=== PATIENT | male | born 1995 | race Caucasian/White ===

== ENCOUNTER 2020-10-19 20:53 | Outpatient (CLI) | payer OTHER | END 2020-10-19 20:54 | disposition home or self-care (01) | LOC: COV 20:53 | PROVIDERS: ATTEND Family Medicine | DX: R05 Cough (principal); R68.83 Chills (without fever); Z20.822 Contact with and (suspected) exposure to COVID-19 ==

== ENCOUNTER 2024-06-15 07:43 | Inpatient (IN) ==
[2024-06-15 08:09] LABS: BASOPHILS % (AUTO) 0.5 %; HCT - HEMATOCRIT 62.6 % (42.0-52.0); HGB - HEMOGLOBIN 20.7 g/dL (14.0-18.0); LYMPHOCYTES % (AUTO) 2.5 %; MEAN CORPUSCULAR HEMOGLOBIN 30.1 pg (27.0-31.0); MEAN CORPUSCULAR HGB CONC 33.1 g/dL (32.0-36.0); MEAN CORPUSCULAR VOLUME 91.1 fL (80.0-94.0); MONOCYTES % (AUTO) 4.3 %; NEUTROPHILS % (AUTO) 91.8 %; PLT - PLATELET COUNT 438 10^3/uL (130-450); RED BLOOD COUNT 6.87 10^6/uL (4.70-6.10); RED CELL DISTRIBUTION WIDTH 13.2 % (12.0-15.0); WHITE BLOOD COUNT 33.3 x10^3/uL (4.8-10.8)
[2024-06-15 08:14] LABS: ABNORMAL LYMPHS % (MANUAL) 0 %
[2024-06-15 08:15] LABS: PT - PROTHROMBIN TIME 11.1 secs (9.9-12.6)
--- NOTE | 2024-06-15 08:19 | ED Physician Documentation ---
History of Present Illness Stated complaint Stated Complaint: ABD PX, FEVER Chief complaint Chief Complaint: Abd Pain History obtained from History obtained from: Patient Additonal information Additional information: He has a history of inguinal hernia repair and alcohol abuse although has cut back after an episode of pancreatitis about a month ago. That said he still drinking occasionally. Last drink was 3 days ago. He developed severe upper abdominal pain at 8 PM last night associated with nausea and vomiting that is nonbloody. Since then pain started radiating down. Last BM about a day and a half ago. He notes decreased urination. Meds/Allgy Home Medications Ambulatory Orders Medication Instructions Recorded Confirmed escitalopram oxalate 10 mg tablet 10 mg PO DAILY 06/15/24 06/15/24 Allergies Allergies Allergy/AdvReac Type Severity Reaction Status Date / Time prochlorperazine (From AdvReac Intermediate Anxiety Verified 06/15/24 08:10 Compazine) [facility] Surgical History Surgical History (Updated 06/15/24 @ 08:27 by Myron Glaser RN) Hx of hernia repair Social History Social History (Updated 06/15/24 @ 08:27 by Myron Glaser RN) Smoking Status: Current some day smoker Do you vape?: Yes Living arrangement: At home Relationship: Do you feel safe in your home environment?: Yes Suffered physical, verbal, emotional, or financial abuse?: No History of Abuse: No ETOH Use: Liquor Frequency: Occasional Substance Use: cannabis (any form) POLST Patient has POLST: No Exam Constitutional He is pale tachycardic and hypertensive and appears to be in pain. Respiratory breath sounds equal bilaterally, normal respiratory effort and clear to auscultation bilaterally Cardiovascular Tachycardic but regular without murmur Gastrointestinal Severe diffuse abdominal tenderness with rebound tenderness. Neurology GCS 15 Psychiatry oriented x3 Results Vitals Vitals: Vital Signs - 24 hr 06/15/24 08:11 06/15/24 08:23 06/15/24 08:35 Temperature 36.5 C Temperature Source Oral Pulse Rate 123 H 109 H Respiratory Rate 24 25 H Blood Pressure 186/130 H 186/130 H O2 Saturation 64 L 98 O2 Source Room air Room air Pain Intensity 8 9 8 06/15/24 08:41 06/15/24 08:43 06/15/24 09:26 Temperature Temperature Source Pulse Rate 97 101 H Respiratory Rate 18 20 Blood Pressure 189/132 H 183/121 H O2 Saturation 98 99 O2 Source Room air Room air Pain Intensity 6 6 8 06/15/24 09:40 06/15/24 09:51 06/15/24 10:21 Temperature 36.8 C Temperature Source Oral Pulse Rate 136 H Respiratory Rate 19 Blood Pressure 174/130 H O2 Saturation 97 O2 Source Room air Pain Intensity 8 4 4 Oxygen O2 Source Room air Labs Labs: Laboratory Tests 06/15/24 08:04 WBC 33.3 H RBC 6.87 H Hgb 20.7 H Hct 62.6 H MCV 91.1 MCH 30.1 MCHC 33.1 RDW 13.2 Plt Count 438 MPV 9.0 Neut # (Auto) Not Reportable Lymph # (Auto) Not Reportable [place] # (Auto) Not Reportable Eos # (Auto) Not Reportable Baso # (Auto) Not Reportable Absolute Nucleated RBC Not Reportable Total Counted 100 Band Neuts % (Manual) 7 Abnorm Lymph % (Manual) 0 Nucleated RBC % Not Reportable Neutrophils # (Manual) 32.0 H Lymphocytes # (Manual) 0.7 L Monocytes # (Manual) 0.7 Eosinophils # (Manual) 0.0 Basophils # (Manual) 0.0 Differential Comment MANUAL DIFFERENTIAL WBC Morphology NORMAL APPEARANCE Platelet Estimate NORMAL (130-450,000) Platelet Morphology NORMAL APPEARANCE RBC Morph Micro Appear NORMAL APPEARANCE PT 11.1 INR 1.0 Sodium 132 L Potassium 4.8 H Chloride 93 L Carbon Dioxide 20 L Anion Gap 19.0 H BUN 22 H Creatinine 1.4 H Estimated GFR (MDRD) 59 L Glucose 157 H Calcium 9.6 Total Bilirubin 2.1 H AST 64 H ALT 70 H Alkaline Phosphatase 131 H Total Protein 7.4 Albumin 4.6 Globulin 2.8 Albumin/Globulin Ratio 1.6 Lipase 1910 H Ethyl Alcohol < 10.0 Rads (name of study) Single view chest x-ray was normal without free air: Relevant Findings:: Final report received and EMP independent interpretation of test CT A/P: Relevant Findings:: Final report received and EMP independent interpretation of test (Severe pancreatitis with out necrosis. He does have edema though and ascites. Radiologist recommended ultrasonography but he had negative ultrasound a month ago.) PD Medical Decision Making ED course ED course: 29-year-old gentleman with history of mild pancreatitis presents with severe abdominal pain he is significantly tender enough that my initial first move was to get an upright chest x-ray to rule out free air which was negative for same. CBC notable for severe leukocytosis and probably hemoconcentration. CMP notable for prerenal azotemia, modest liver disease, and lipase elevated at 1900. No alcohol on blood work currently. 29-year-old gentleman with severe alcoholic pancreatitis. He is tachycardic in the 130s, hypertensive with a white count of 33,000 and signs of hemoconcentration. CT showing edema and ascites, but no necrotizing component at this point. Spoke with the hospitalist for admission at 10:15 AM. The patient and family are counseled as to the diagnosis and need for admission. This document was made in part using voice recognition software, while efforts are made to proofread this document, sound alike an grammatical errors may occur. Critical Care Time(min): 42 Time Includes: Direct patient care, Review records, Reassess patient and Document care Data interpretation: Labs Procedures included in critical care time: Peripheral IV Discharge Plan Discharge Patient Disposition: 66 [facility] DC/Xfer Condition: Serious Clinical Impression: Pancreatitis Interventions: ED Admission Assessment Last Done: 06/15/24 11:10
[2024-06-15] MEDS ORDERED: iohexoL-300 100 ML VIAL ONE (08:20)
[2024-06-15] MEDS: SODIUM CHLORIDE 0.9% 1,000 ML IV STA ×2 (08:21→10:26)
[2024-06-15 08:23] LABS: ETOH - ETHANOL < 10.0 mg/dL
[2024-06-15] MEDS: ONDANSETRON 4 MG/2 ML VIAL IVP STA (08:23)
[2024-06-15] MEDS: HYDROmorphone 1 MG/ML CARPUJECT IVP STA ×2 (08:23→09:40)
[2024-06-15 08:28] LABS: BAND NEUTROPHILS % (MANUAL) 7 %; LYMPHOCYTES # (MANUAL) 0.7 10^3/uL (1.5-3.5); LYMPHOCYTES % (MANUAL) 2 %; MONOCYTES # (MANUAL) 0.7 10^3/uL (0.0-1.0); PLATELET ESTIMATE, MANUAL NORMAL (130-450,000) (NORMAL); PLATELET MORPHOLOGY NORMAL APPEARANCE (NORMAL); RBC MORPHOLOGY (MULTIPLE) NORMAL APPEARANCE (NORMAL); WBC MORPHOLOGY (MULTIPLE) NORMAL APPEARANCE (NORMAL)
[2024-06-15 08:29] LABS: DIFFERENTIAL COMMENT MANUAL DIFFERENTIAL
[2024-06-15 08:33] LABS: LIPASE 1910 U/L (11-82)
[2024-06-15 08:34] LABS: ALBUMIN 4.6 g/dL (3.2-5.5); ALBUMIN/GLOBULIN RATIO 1.6 (1.0-2.2); ALKALINE PHOSPHATASE 131 IU/L (42-121); ALT ALANINE AMINOTRANSFERASE 70 IU/L (10-60); AST ASPARTATE AMINOTRANSFERASE 64 IU/L (10-42); BILIRUBIN,TOTAL 2.1 mg/dL (0.2-1.0); BUN - BLOOD UREA NITROGEN 22 mg/dL (6-20); CALCIUM 9.6 mg/dL (8.5-10.3); CARBON DIOXIDE - CO2 20 mmol/L (21-32); CHLORIDE 93 mmol/L (101-111); CREATININE 1.4 mg/dL (0.6-1.3); GFR - MDRD 59 (>89); GLUCOSE 157 mg/dL (74-104); POTASSIUM 4.8 mmol/L (3.5-4.5); SODIUM 132 mmol/L (135-145); TOTAL PROTEIN 7.4 g/dL (6.4-8.9)
--- NOTE | 2024-06-15 09:36 | XRAY Report ---
PROCEDURE: XR Chest 1V INDICATIONS: upright, eval free air, severe abd pain TECHNIQUE: One view of the chest was acquired. COMPARISON: None. FINDINGS: Surgical changes and devices: None. Lungs and pleura: No pleural effusions or pneumothorax. No consolidation. Mediastinum: Mediastinal contours appear normal. Heart size is normal. Bones and chest wall: No suspicious bony lesions. Overlying soft tissues appear unremarkable. IMPRESSION: No acute cardiopulmonary process. Reviewed by: Kaiser Quinones MD on 06/15/2024 9:35 AM [facility] Approved by: Kaiser Quinones MD on 06/15/2024 9:35 AM [facility] Station ID: [id number]
[2024-06-15] MEDS: iohexoL-300 100 ML VIAL IVP ONE (09:37)
[2024-06-15] MEDS ORDERED: HYDROmorphone 1 MG/ML CARPUJECT ONE (09:38)
--- NOTE | 2024-06-15 09:41 | CT Report ---
PROCEDURE: CT Abdomen/Pelvis W INDICATIONS: iv only, diffuse abd pain CONTRAST: OMNI 300 100ML TECHNIQUE: After the administration of intravenous contrast, a CT scan of the abdomen and pelvis was performed. Images were recorded and evaluated at appropriate window settings. Reformats: coronal and sagittal. F or radiation dose reduction, the following was used: automated exposure control, adjustment of mA and /or kV according to patient size. COMPARISON: 05/12/2024. FINDINGS: Image quality: Diagnostic. Lower chest: Unremarkable. Liver: No solid mass. Gallbladder: Distended gallbladder with mild wall prominence. No radiopaque gallstones noted. Biliary tree: No intrahepatic or extrahepatic dilation, accounting for age. Spleen: Mild pancreatic edema. No pancreatic necrosis. No free air or abscess. Extensive peripancreat ic inflammatory ascites with ascites extending down into the pelvis. Pancreas: No pancreatic ductal dilation. Adrenals: No adrenal nodule. Kidneys and ureters: No hydronephrosis. No renal cystic lesion which requires follow up. No solid mas s. Stomach, bowel and peritoneum: No gastric or small bowel dilation. No abnormal wall thickening. Moder ate abdominal ascites and mild pelvic ascites, likely representing sequelae of acute pancreatitis. Lymph nodes: No central or retroperitoneal adenopathy. Vessels: No infrarenal aortic aneurysm. Patent portal vein. Incidental note is made of independent or igin of the common hepatic artery as an independent vessel off of the abdominal aorta. PELVIS Reproductive organs: Unremarkable. Bladder: No abnormal wall thickening, accounting for underdistention. Pelvic lymph nodes: No pelvic adenopathy by size criteria. Bones: No aggressive osseous abnormality. Other: No significant ventral or inguinal hernia. IMPRESSION: 1. Acute pancreatitis. Suggestion of pancreatic edema. Extensive peripancreatic fluid, likely inflamm atory in nature, with moderate abdominal ascites and mild pelvic ascites. No evidence of pancreatic n ecrosis. 2. Distended gallbladder with mild wall prominence. No radiopaque gallstones noted. Comment: Right upper quadrant ultrasound may be helpful. Reviewed by: Kaiser Quinones MD on 06/15/2024 9:40 AM [facility] Approved by: Kaiser Quinones MD on 06/15/2024 9:40 AM PST Station ID: [id number]
[2024-06-15] MEDS: D5.45NS W/20 MEQ KCL 1,000 ML IV STA (10:31)
--- NOTE | 2024-06-15 11:02 | PHARMACY PROGRESS NOTE ---
Best Possible Medication History Admit Date and Time: 06/15/24 [id number] Home Medications Medication Instructions Recorded Confirmed Type escitalopram oxalate 10 mg tablet 10 mg PO DAILY 06/15/24 06/15/24 History Processed by: Nursing Medications reviewed in ED?: Yes Medication History completed: Yes Patient Interview: Completed Secondary Source(s): Pharmacy records and Insurance records [facility] Statement: As the person ultimately responsible for medication therapy, providers are able to order a medication from an existing home medication list in [facility] via the "Reconcile Routine" prior to Confirmation of that medication by cryptologic support specialist. Such practice is discouraged except when the physician, in their clinical judgment, deems that a medical need exists for a medication without regard to previous use.
[2024-06-15] MEDS: HYDROmorphone 0.5 MG/0.5 ML SYRINGE IVP PRN (11:30)
[2024-06-15] MEDS: HYDROmorphone PCA 20MG/100ML IV PRN (12:30)
[2024-06-15 13:08] LABS: BASOPHILS % (AUTO) 0.1 %; HCT - HEMATOCRIT 62.6 % (42.0-52.0); HGB - HEMOGLOBIN 20.8 g/dL (14.0-18.0); LYMPHOCYTES % (AUTO) 2.7 %; MEAN CORPUSCULAR HEMOGLOBIN 30.1 pg (27.0-31.0); MEAN CORPUSCULAR HGB CONC 33.2 g/dL (32.0-36.0); MEAN CORPUSCULAR VOLUME 90.7 fL (80.0-94.0); MEAN PLATELET VOLUME 9.1 fL (7.4-11.4); MONOCYTES % (AUTO) 2.9 %; NEUTROPHILS % (AUTO) 93.7 %; PLT - PLATELET COUNT 383 10^3/uL (130-450); RED CELL DISTRIBUTION WIDTH 13.7 % (12.0-15.0); WHITE BLOOD COUNT 29.1 x10^3/uL (4.8-10.8)
[2024-06-15 13:12] LABS: ABNORMAL LYMPHS % (MANUAL) 0 %
--- NOTE | 2024-06-15 13:17 | HISTORY & PHYSICAL EXAMINATION ---
Chief Complaint Chief Complaint Chief Complaint: Abdominal pain History of Present Illness History of Present Illness HPI Comment/Other: This is a 29-year-old male with a past medical history of pancreatitis, alcohol use disorder and anxiety who presents with ER for abdominal pain x 3 days. Patient states that abdominal pain is over the left upper quadrant, very painful upon palpitation. This has started several days ago. Patient states last drink was on Saturday. Patient states that he never went through DTs or seizures during Several episodes of alcohol withdrawal. Patient had similar episodes back in April.At this time CT abdomen indicated inflammation of pancreatic head. Ultrasound at that time showed hepatic steatosis and nonobstructive calculi of the right kidney. Today: Chest ray in the ED indicated no cardiopulmonary issues CT of the abdomen indicates acute pancreatitis with pancreatic edema. Extensive Pancreatic fluid likely inflammation, moderate abdominal ascites. No pancreatic evidence of regarding necrosis. Distended gallbladder with mild wall prominence no gallstones noted. Laboratory values are significant for elevated leukocytosis of 23,000, Elevated creatinineOf 1.4, elevated bilirubin of 2.1 elevated AST ALT, Elevated alkaline phosphatase and a lipase of 1910. Patient is full code Meds/Allgy Home Medications Ambulatory Orders Medication Instructions Recorded Confirmed escitalopram oxalate 10 mg tablet 10 mg PO DAILY 06/15/24 06/15/24 Allergies Allergies Allergy/AdvReac Type Severity Reaction Status Date / Time prochlorperazine (From AdvReac Intermediate Anxiety Verified 06/15/24 08:10 Compazine) [facility] Surgical History Surgical History (Updated 06/15/24 @ 08:27 by Myron Glaser RN) Hx of hernia repair Social History Social History (Updated 06/15/24 @ 08:27 by Myron Glaser RN) Smoking Status: Current some day smoker Do you vape?: Yes Living arrangement: At home Relationship: Do you feel safe in your home environment?: Yes Suffered physical, verbal, emotional, or financial abuse?: No History of Abuse: No ETOH Use: Liquor Frequency: Occasional Substance Use: cannabis (any form) POLST Patient has POLST: No Review of Systems Status of ROS: 10 or more systems reviewed and unremarkable except as noted in history and below Exam Constitutional normal general appearance In pain distress HENMT normocephalic and head/scalp atraumatic Eyes PERRL and EOMs intact bilaterally Neck/C-Spine visual inspection normal and trachea midline Chest inspection of chest normal and palpation of chest normal Respiratory breath sounds equal bilaterally and normal respiratory effort Cardiovascular Sinus tach Gastrointestinal Left upper quadrant pain upon palpitation Extremities normal to inspection and normal to palpation Neurology piccoloist II-XII intact and no movement abnormality noted Skin skin color normal and no rash Conclusion/Plan Problem List (1) Acute alcoholic pancreatitis: Plan: Patient has recurrent pancreatitis due to alcohol. On CT abdomen patient has acute hepatitis without necrosis. Pain control with PARTS CONSULTANT Dilaudid Aggressive IV fluids resuscitation N.p.o. (2) Tachycardia: Plan: Likely pain related Lopressor as needed for heart rate greater than 120, hold for SBP less than 100 (3) Elevated liver enzymes: Plan: Likely due to chronic alcohol use. Previous ultrasound(05/10) indicated hepatic steatosis and no indication of gallstones or biliary obstruction. Monitor (4) Abdominal pain: Plan: PARTS CONSULTANT pain control Qualifiers: Abdominal location: unspecified location Qualified Code(s): R10.9 - Unspecified abdominal pain (5) Alcohol use disorder: Plan: CIWA protocol Patient denies previous DTs or seizures during withdrawal episodes. (6) Leukocytosis: Plan: Likely reactive in the background of acute pancreatitis. Continue monitor Hold ABX (7) Anxiety: Plan: Continue with home medication of escitalopram Lab Results 06/15/24 08:04 06/15/24 08:04
[2024-06-15 13:39] LABS: ALBUMIN 3.4 g/dL (3.2-5.5); ALBUMIN/GLOBULIN RATIO 1.6 (1.0-2.2); BILIRUBIN,TOTAL 1.4 mg/dL (0.2-1.0); CALCIUM 7.9 mg/dL (8.5-10.3); CREATININE 1.2 mg/dL (0.6-1.3); POTASSIUM 4.4 mmol/L (3.5-4.5); TOTAL PROTEIN 5.5 g/dL (6.4-8.9)
[2024-06-15 13:49] LABS: BAND NEUTROPHILS % (MANUAL) 7 %; DIFFERENTIAL COMMENT MANUAL DIFFERENTIAL; LYMPHOCYTES # (MANUAL) 0.6 10^3/uL (1.5-3.5); LYMPHOCYTES % (MANUAL) 2 %; MONOCYTES # (MANUAL) 0.9 10^3/uL (0.0-1.0); NEUTROPHILS # (MANUAL) 27.6 10^3/uL (1.5-6.6); PLATELET MORPHOLOGY NORMAL APPEARANCE (NORMAL); RBC MORPHOLOGY (MULTIPLE) NORMAL APPEARANCE (NORMAL); WBC MORPHOLOGY (MULTIPLE) NORMAL APPEARANCE (NORMAL)
[2024-06-15] MEDS: LORazepam 2 MG/ML VIAL IVP PRN (14:10)
[2024-06-15] MEDS: SODIUM CHLORIDE FLUSH 0.9% 10 ML SYRINGE IVP PRN (14:10)
[2024-06-15] MEDS: ONDANSETRON ODT 4 MG TABLET TL PRN (14:16)
[2024-06-15] MEDS: METOPROLOL 5 MG/5 ML VIAL IVP PRN (14:34)
[2024-06-15] MEDS: MULTIVITAMIN 10 ML, THIAMINE INJ 100 MG, FOLIC ACID INJ 1 MG in SODIUM CHLORIDE 0.9% 1,... IV SCH (15:52)
[2024-06-15] MEDS: SODIUM CHLORIDE 0.9% 1,000 ML IV SCH (15:58)
[2024-06-15] MEDS: SODIUM CHLORIDE FLUSH 0.9% 10 ML SYRINGE IVP SCH (18:18)
[2024-06-15] MEDS: polyethylene glycoL 3350 17 GM PACKET PO SCH (22:24)
[2024-06-16 05:58] LABS: HCT - HEMATOCRIT 56.3 % (42.0-52.0); HGB - HEMOGLOBIN 19.1 g/dL (14.0-18.0); LYMPHOCYTES % (AUTO) 4.8 %; MEAN CORPUSCULAR HEMOGLOBIN 30.8 pg (27.0-31.0); MEAN CORPUSCULAR HGB CONC 33.9 g/dL (32.0-36.0); MEAN CORPUSCULAR VOLUME 90.8 fL (80.0-94.0); MEAN PLATELET VOLUME 9.8 fL (7.4-11.4); MONOCYTES % (AUTO) 4.3 %; NEUTROPHILS % (AUTO) 90.4 %; PLT - PLATELET COUNT 282 10^3/uL (130-450); RED CELL DISTRIBUTION WIDTH 13.2 % (12.0-15.0); WHITE BLOOD COUNT 28.4 x10^3/uL (4.8-10.8)
[2024-06-16 06:01] LABS: CALCIUM, IONIZED 1.09 mmol/L (1.15-1.33); VBG PH 7.211 (7.31-7.41)
[2024-06-16 06:06] LABS: ABNORMAL LYMPHS % (MANUAL) 0 %
[2024-06-16 06:16] LABS: CALCIUM 7.7 mg/dL (8.5-10.3); MAGNESIUM 1.5 mg/dL (1.7-2.3); PHOSPHORUS 4.4 mg/dL (2.5-5.0); POTASSIUM 4.7 mmol/L (3.5-4.5)
[2024-06-16 08:09] LABS: BAND NEUTROPHILS % (MANUAL) 14 %; LYMPHOCYTES # (MANUAL) 0.6 10^3/uL (1.5-3.5); LYMPHOCYTES % (MANUAL) 2 %; MONOCYTES # (MANUAL) 1.7 10^3/uL (0.0-1.0); NEUTROPHILS # (MANUAL) 26.1 10^3/uL (1.5-6.6); RBC MORPHOLOGY (MULTIPLE) 1+ ANISOCYTOSIS (NORMAL)
[2024-06-16 08:10] LABS: DIFFERENTIAL COMMENT MANUAL DIFFERENTIAL
[2024-06-16] MEDS ORDERED: polyethylene glycoL 3350 17 GM PACKET PO SCH (09:00)
[2024-06-16] MEDS: ESCITALOPRAM 10 MG TABLET PO SCH (09:18)
[2024-06-16] MEDS: ENOXAPARIN 40 MG/0.4 ML SYRINGE SUBQ SCH (09:19)
--- NOTE | 2024-06-16 11:40 | Ultrasound Report ---
PROCEDURE: US Abdomen Limited INDICATIONS: gallbladder TECHNIQUE: Real-time focused scanning was performed of the abdomen, with image documentation. COMPARISONS: CT 06/15/2024 FINDINGS: Liver: Liver is normal in size and homogeneous in echotexture. Gallbladder: No gallstones, sludge, wall thickening or pericholecystic edema. Biliary ducts: Intrahepatic bile ducts are non-dilated. Extrahepatic bile duct caliber measures 4 m m. Normal is 6-7 mm or less in diameter, or 10 mm or less post-cholecystectomy. Pancreas: Not well visualized due to overlying bowel gas. Right kidney: Normal in size and echotexture. Right kidney measures 9.3 cm long. No hydronephrosis o r nephrolithiasis. No solid masses. No complex renal cystic lesions which require follow-up. Miscellaneous: Small volume ascites. IMPRESSION: No gallbladder pathology. No stones or wall thickening. Reviewed by: Jayant Pedersen MD on 06/16/2024 11:39 AM [facility] Approved by: Jayant Pedersen MD on 06/16/2024 11:39 AM PST Station ID: [id number]
--- NOTE | 2024-06-16 12:07 | PROVIDER PROGRESS NOTE ---
Subjective Subjective Subjective: Patient is a 29-year-old male with a history of alcohol use who presents with abdominal pain. CT shows acute pancreatitis with pancreatic edema. Did show distended gallbladder. This morning, patient is feeling a little improved. 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 His appetite is returning. Current Medications Current Medications Current Medications: Current Medications Generic Name Dose Route Start Last Admin Trade Name Freq PRN Reason Stop Dose Admin Enoxaparin Sodium 40 mg 06/16/24 09:00 06/16/24 09:19 Enoxaparin 40 Mg/0.4 Ml Syringe SUBQ Not Given DAILY RIVERA Escitalopram Oxalate 10 mg 06/16/24 09:00 06/16/24 09:18 Escitalopram 10 Mg Tablet PO 10 mg DAILY RIVERA Administration Hydromorphone HCl 20 mg 06/15/24 10:38 06/15/24 12:30 Hydromorphone Hogshead Stripper 20mg/100ml IV 20 mg PRN PRN Administration Abdominal Pain Protocol Hydromorphone HCl 0.5 mg 06/15/24 11:03 06/15/24 11:30 Hydromorphone 0.5 Mg/0.5 Ml Syringe IVP 0.5 mg Q2H PRN Administration Pain 8 to 10 Sodium Chloride 1,000 mls @ 125 mls/hr 06/15/24 11:03 06/16/24 02:51 Normal Saline 0.9% IV 125 mls/hr .Q8H RIVERA Administration Multivitamins 10 ml/ Thiamine 1,011.2 mls @ 100 mls/hr 06/15/24 13:00 06/16/24 09:20 HCl 100 mg/ Folic Acid 1 mg/ IV 100 mls/hr Sodium Chloride DAILY RIVERA Administration Lorazepam 1 mg 06/15/24 12:46 06/16/24 01:50 Lorazepam 2 Mg/Ml Vial IVP 1 mg Q30M PRN Administration CIWA >8 Protocol Metoprolol Tartrate 5 mg 06/15/24 12:54 06/16/24 04:27 Metoprolol 5 Mg/5 Ml Vial IVP 5 mg Q6H PRN Administration Tachycardia Ondansetron HCl 4 mg 06/15/24 11:03 06/15/24 20:31 Ondansetron Odt 4 Mg Tablet TL 4 mg Q6HR PRN Administration Nausea / Vomiting Polyethylene Glycol 17 gm 06/15/24 23:00 06/16/24 09:19 Polyethylene Glycol 3350 17 Gm Packet PO 17 gm DAILY RIVERA Administration Sodium Chloride 10 ml 06/15/24 11:03 06/15/24 14:35 Sodium Chloride Flush 0.9% 10 Ml Syringe IVP 10 ml PRN PRN Administration NEEDED PER PROVIDER ORDERS Sodium Chloride 10 ml 06/15/24 17:00 06/16/24 09:20 Sodium Chloride Flush 0.9% 10 Ml Syringe IVP 10 ml 0100,0900,1700 RIVERA Administration Objective Vital Signs/Intake & Output Reviewed Vital Signs: Yes Vital Signs: Vital Signs x48h Temp Pulse Pulse Resp BP BP Pulse Ox 06/16/24 11:00 18 06/16/24 08:21 97.3 F L 121 H 18 135/88 H 96 06/16/24 06:48 18 06/16/24 05:00 18 06/16/24 04:57 101 H 109/76 06/16/24 04:43 98 109/76 98 06/16/24 04:27 138 H 127/86 06/16/24 04:20 98.1 F 132 H 20 127/86 96 Intake & Output: Intake & Output 06/13/24 06/14/24 06/15/24 06/16/24 23:59 23:59 23:59 23:59 Intake Total 3569 / 3569 1121.2 / 1121.2 Output Total 150 / 150 45 / 45 Balance 3419 / 3419 1076.2 / 1076.2 Weight (kg) 52 kg Objective General Appearance: positive Mild distress and Anxious Eyes Bilateral: positive Normal inspection, PERRL and EOMI ENT: positive ENT inspection nml, Pharynx nml and No signs of dehydration Neck: positive Nml inspection, Thyroid nml and No JVD Respiratory: positive Chest non-tender, No respiratory distress and Breath sounds nml; negative Wheezes, Rales or Rhonchi Cardiovascular: positive No murmur and Tachycardia; negative Diastolic murmur or Friction rub Abdomen: positive Nml bowel sounds and Tenderness; negative Guarding or Rebound Back: positive Nml inspection; negative CVA tenderness (R) or CVA tenderness (L) Skin: positive Color nml, No rash, Warm and Dry Extremities: positive Non-tender, Full ROM and No pedal edema Neurologic/Psychiatric: positive Oriented x3 and Mood/affect nml Lab Results 06/16/24 05:40 06/16/24 05:40 Other Labs: Lab Results x24hrs 06/16/24 06/16/24 06/15/24 Range/Units 05:40 04:53 13:01 WBC 28.4 H 29.1 H (4.8-10.8) x10^3/uL RBC 6.20 H 6.90 H (4.70-6.10) 10^6/uL Hgb 19.1 H 20.8 H (14.0-18.0) g/dL Hct 56.3 H 62.6 H (42.0-52.0) % MCV 90.8 90.7 (80.0-94.0) fL MCH 30.8 30.1 (27.0-31.0) pg MCHC 33.9 33.2 (32.0-36.0) g/dL RDW 13.2 13.7 (12.0-15.0) % Plt Count 282 383 (130-450) 10^3/uL MPV 9.8 9.1 (7.4-11.4) fL Neut # (Auto) Not Reportable Not Reportable Lymph # (Auto) Not Reportable Not Reportable [place] # (Auto) Not Reportable Not Reportable Eos # (Auto) Not Reportable Not Reportable Baso # (Auto) Not Reportable Not Reportable Absolute Nucleated RBC Not Reportable Not Reportable Total Counted 100 100 Band Neuts % (Manual) 14 H 7 (0 - 10) % Abnorm Lymph % (Manual) 0 0 % Nucleated RBC % Not Reportable Not Reportable Neutrophils # (Manual) 26.1 H 27.6 H (1.5-6.6) 10^3/uL Lymphocytes # (Manual) 0.6 L 0.6 L (1.5-3.5) 10^3/uL Monocytes # (Manual) 1.7 H 0.9 (0.0-1.0) 10^3/uL Eosinophils # (Manual) 0.0 0.0 (0-0.7) 10^3/uL Basophils # (Manual) 0.0 0.0 (0-0.1) 10^3/uL Differential Comment MANUAL DIFFERENTIAL MANUAL DIFFERENTIAL WBC Morphology NORMAL APPEARANCE (NORMAL) Platelet Morphology NORMAL APPEARANCE (NORMAL) RBC Morph Micro Appear 1+ ANISOCYTOSIS NORMAL APPEARANCE (NORMAL) VBG pH 7.211 L (7.31-7.41) Ionized Calcium 1.09 L (1.15-1.33) mmol/L Sodium 136 134 L (135-145) mmol/L Potassium 4.7 H 4.4 (3.5-4.5) mmol/L Chloride 107 100 L (101-111) mmol/L Carbon Dioxide 20 L 21 (21-32) mmol/L Anion Gap 9.0 13.0 (6-13) BUN 30 H 23 H (6-20) mg/dL Creatinine 2.0 H 1.2 (0.6-1.3) mg/dL Estimated GFR (MDRD) 39 L 71 L (>89) Glucose 108 H 185 H (74-104) mg/dL POC Whole Bld Glucose 94 (70-100) mg/dL Calcium 7.7 L 7.9 L (8.5-10.3) mg/dL Phosphorus 4.4 (2.5-5.0) mg/dL Magnesium 1.5 L (1.7-2.3) mg/dL Total Bilirubin 1.4 H (0.2-1.0) mg/dL AST 48 H (10-42) IU/L ALT 50 (10-60) IU/L Alkaline Phosphatase 94 (42-121) IU/L Total Protein 5.5 L (6.4-8.9) g/dL Albumin 3.4 (3.2-5.5) g/dL Globulin 2.1 (2.1-4.2) g/dL Albumin/Globulin Ratio 1.6 (1.0-2.2) Diagnostic Imaging Diagnostic Imaging Results: positive Final report reviewed Assessment/Plan Problem List (1) Acute alcoholic pancreatitis: Impression: Patient presented with typical epigastric pain, elevated lipase of 1910. CT abdomen/pelvis showed distended gallbladder, as well as acute pancreatitis, suggestion of pancreatic edema, sense of peripancreatic fluid, moderate abdominal ascites and pelvic ascites. No necrosis was seen. Continue aggressive IV fluid resuscitation, n.p.o. status, pain control. Allow strict bowel rest. Qualifiers: Acute pancreatitis complication: no infection or necrosis Qualified Code(s): K85.20 - Alcohol induced acute pancreatitis without necrosis or infection (2) Tachycardia: Impression: Sinus tachycardia, improving. Likely due to underlying alcohol withdrawal, as well as pain. (3) Elevated liver enzymes: Impression: Improving. Continue to trend. (4) Abdominal pain: Impression: See above, due to acute pancreatitis. Abdominal ultrasound ordered, shows no gallbladder pathology. Qualifiers: Abdominal location: unspecified location Qualified Code(s): R10.9 - Unspecified abdominal pain (5) Alcohol use disorder: Impression: Continue [facility] protocol for closer monitoring of withdrawals. SW/CM spoke with patient, and provided resources. (6) Leukocytosis: Impression: Reactive to above, continue to monitor. Qualifiers: Leukocytosis type: unspecified Qualified Code(s): D72.829 - Elevated white blood cell count, unspecified (7) Anxiety: Impression: Continue escitalopram.
[2024-06-16] MEDS: guaiFENesin 600 MG TABLET PO SCH (16:27)
[2024-06-17 05:57] LABS: BASOPHILS % (AUTO) 0.3 %; EOSINOPHILS % (AUTO) 0.2 %; HGB - HEMOGLOBIN 14.6 g/dL (14.0-18.0); LYMPHOCYTES % (AUTO) 6.9 %; MEAN CORPUSCULAR HEMOGLOBIN 29.9 pg (27.0-31.0); MEAN CORPUSCULAR HGB CONC 32.4 g/dL (32.0-36.0); MEAN CORPUSCULAR VOLUME 92.2 fL (80.0-94.0); MEAN PLATELET VOLUME 9.7 fL (7.4-11.4); MONOCYTES % (AUTO) 4.2 %; NEUTROPHILS % (AUTO) 87.6 %; PLT - PLATELET COUNT 174 10^3/uL (130-450); RED BLOOD COUNT 4.88 10^6/uL (4.70-6.10); WHITE BLOOD COUNT 14.3 x10^3/uL (4.8-10.8)
[2024-06-17 06:00] LABS: CALCIUM, IONIZED 1.13 mmol/L (1.15-1.33); VBG PH 7.315 (7.31-7.41)
[2024-06-17 06:08] LABS: ABNORMAL LYMPHS % (MANUAL) 0 %
[2024-06-17 06:12] LABS: CALCIUM 7.5 mg/dL (8.5-10.3); CREATININE 1.2 mg/dL (0.6-1.3); MAGNESIUM 1.4 mg/dL (1.7-2.3); POTASSIUM 4.8 mmol/L (3.5-4.5)
[2024-06-17 06:34] LABS: BAND NEUTROPHILS % (MANUAL) 10 %; DIFFERENTIAL COMMENT MANUAL DIFFERENTIAL; LYMPHOCYTES # (MANUAL) 0.6 10^3/uL (1.5-3.5); LYMPHOCYTES % (MANUAL) 4 %; MONOCYTES # (MANUAL) 0.9 10^3/uL (0.0-1.0); NEUTROPHILS # (MANUAL) 12.9 10^3/uL (1.5-6.6); PLATELET ESTIMATE, MANUAL NORMAL (130-450,000) (NORMAL); PLATELET MORPHOLOGY NORMAL APPEARANCE (NORMAL); RBC MORPHOLOGY (MULTIPLE) NORMAL APPEARANCE (NORMAL); WBC MORPHOLOGY (MULTIPLE) NORMAL APPEARANCE (NORMAL)
[2024-06-17] MEDS: MAGNESIUM SULFATE 2 GRAM 2 GM/50 ML BAG IV ONE (09:37)
--- NOTE | 2024-06-17 12:02 | PROVIDER PROGRESS NOTE ---
Subjective Prog Note Date Prog Note Date: 06/17/24 Subjective Pt reports feeling: Improved Current Medications Current Medications Current Medications: Current Medications Generic Name Dose Route Start Last Admin Trade Name Freq PRN Reason Stop Dose Admin Enoxaparin Sodium 40 mg 06/16/24 09:00 06/17/24 08:24 Enoxaparin 40 Mg/0.4 Ml Syringe SUBQ 40 mg DAILY RIVERA Administration Escitalopram Oxalate 10 mg 06/16/24 09:00 06/17/24 08:19 Escitalopram 10 Mg Tablet PO 10 mg DAILY RIVERA Administration Guaifenesin 600 mg 06/16/24 16:30 06/17/24 08:19 Guaifenesin 600 Mg Tablet PO 600 mg BID RIVERA Administration Hydromorphone HCl 20 mg 06/15/24 10:38 06/15/24 12:30 Hydromorphone Roaster Supervisor 20mg/100ml IV 20 mg PRN PRN Administration Abdominal Pain Protocol Hydromorphone HCl 0.5 mg 06/15/24 11:03 06/16/24 19:09 Hydromorphone 0.5 Mg/0.5 Ml Syringe IVP 0.5 mg Q2H PRN Administration Pain 8 to 10 Sodium Chloride 1,000 mls @ 200 mls/hr 06/15/24 11:03 06/17/24 09:41 Normal Saline 0.9% IV Not Given .Q5H RIVERA Lorazepam 1 mg 06/15/24 12:46 06/16/24 01:50 Lorazepam 2 Mg/Ml Vial IVP 1 mg Q30M PRN Administration CIWA >8 Protocol Metoprolol Tartrate 5 mg 06/15/24 12:54 06/16/24 14:49 Metoprolol 5 Mg/5 Ml Vial IVP 5 mg Q6H PRN Administration Tachycardia Ondansetron HCl 4 mg 06/15/24 11:03 06/15/24 20:31 Ondansetron Odt 4 Mg Tablet TL 4 mg Q6HR PRN Administration Nausea / Vomiting Polyethylene Glycol 17 gm 06/15/24 23:00 06/17/24 09:44 Polyethylene Glycol 3350 17 Gm Packet PO 17 gm DAILY RIVERA Administration Sodium Chloride 10 ml 06/15/24 11:03 06/16/24 19:10 Sodium Chloride Flush 0.9% 10 Ml Syringe IVP 10 ml PRN PRN Administration NEEDED PER PROVIDER ORDERS Sodium Chloride 10 ml 06/15/24 17:00 06/17/24 09:44 Sodium Chloride Flush 0.9% 10 Ml Syringe IVP 10 ml 0100,0900,1700 [facility] Administration Objective Vital Signs/Intake & Output Reviewed Vital Signs: Yes Vital Signs: Vital Signs x48h Temp Pulse Resp BP Pulse Ox 06/17/24 11:00 22 06/17/24 08:38 36.9 C 111 H 18 124/91 H 92 06/17/24 06:41 22 06/17/24 04:03 37.2 C 109 H 18 150/100 H 92 Intake & Output: Intake & Output 06/14/24 06/15/24 06/16/24 06/17/24 23:59 23:59 23:59 23:59 Intake Total 3569 / 3569 3121.2 / 3121.2 1992.2 / 1992.2 Output Total 150 / 150 405 / 405 500 / 500 Balance 3419 / 3419 2716.2 / 2716.2 1493.2 / 1493.2 Weight (kg) 52 kg Objective General Appearance: positive No acute distress and Alert Eyes Bilateral: positive Normal inspection, PERRL and EOMI ENT: positive ENT inspection nml, Pharynx nml and No signs of dehydration Neck: positive Nml inspection, Thyroid nml and No JVD Respiratory: positive Chest non-tender, No respiratory distress and Breath sounds nml; negative Wheezes, Rales or Rhonchi Cardiovascular: positive No murmur and Tachycardia; negative Diastolic murmur or Friction rub Abdomen: positive Nml bowel sounds and Tenderness; negative Guarding or Rebound Back: positive Nml inspection; negative CVA tenderness (R) or CVA tenderness (L) Skin: positive Color nml, No rash, Warm and Dry Extremities: positive Non-tender, Full ROM and No pedal edema Neurologic/Psychiatric: positive Oriented x3 and Mood/affect nml Lab Results 06/17/24 05:45 06/17/24 05:45 Other Labs: Lab Results x24hrs 06/17/24 Range/Units 05:45 WBC 14.3 H (4.8-10.8) x10^3/uL RBC 4.88 (4.70-6.10) 10^6/uL Hgb 14.6 (14.0-18.0) g/dL Hct 45.0 (42.0-52.0) % MCV 92.2 (80.0-94.0) fL MCH 29.9 (27.0-31.0) pg MCHC 32.4 (32.0-36.0) g/dL RDW 13.0 (12.0-15.0) % Plt Count 174 (130-450) 10^3/uL MPV 9.7 (7.4-11.4) fL Neut # (Auto) Not Reportable Lymph # (Auto) Not Reportable [place] # (Auto) Not Reportable Eos # (Auto) Not Reportable Baso # (Auto) Not Reportable Absolute Nucleated RBC Not Reportable Total Counted 100 Band Neuts % (Manual) 10 (0 - 10) % Abnorm Lymph % (Manual) 0 % Nucleated RBC % Not Reportable Neutrophils # (Manual) 12.9 H (1.5-6.6) 10^3/uL Lymphocytes # (Manual) 0.6 L (1.5-3.5) 10^3/uL Monocytes # (Manual) 0.9 (0.0-1.0) 10^3/uL Eosinophils # (Manual) 0.0 (0-0.7) 10^3/uL Basophils # (Manual) 0.0 (0-0.1) 10^3/uL Differential Comment MANUAL DIFFERENTIAL WBC Morphology NORMAL APPEARANCE (NORMAL) Platelet Estimate NORMAL (130-450,000) (NORMAL) Platelet Morphology NORMAL APPEARANCE (NORMAL) RBC Morph Micro Appear NORMAL APPEARANCE (NORMAL) VBG pH 7.315 (7.31-7.41) Ionized Calcium 1.13 L (1.15-1.33) mmol/L Sodium 133 L (135-145) mmol/L Potassium 4.8 H (3.5-4.5) mmol/L Chloride 104 (101-111) mmol/L Carbon Dioxide 24 (21-32) mmol/L Anion Gap 5.0 L (6-13) BUN 23 H (6-20) mg/dL Creatinine 1.2 (0.6-1.3) mg/dL Estimated GFR (MDRD) 71 L (>89) Glucose 84 (74-104) mg/dL Calcium 7.5 L (8.5-10.3) mg/dL Magnesium 1.4 L (1.7-2.3) mg/dL Assessment/Plan Problem List (1) Acute alcoholic pancreatitis: Impression: Lipase initially elevated at 1910. He was admitted to the hospital and placed on aggressive IV fluid resuscitation and a Dilaudid SCALER PACKER pump. CT abdomen/pelvis showed distended gallbladder, acute pancreatitis. 06/17/2024: Increase fluids to 200 mL/hour. Continue Dilaudid SCALER PACKER. Advance to clear liquid diet Qualifiers: Acute pancreatitis complication: no infection or necrosis Qualified Code(s): K85.20 - Alcohol induced acute pancreatitis without necrosis or infection (2) Tachycardia: Impression: Sinus tachycardia, improving. Likely due to underlying alcohol withdrawal, as well as pain. (3) Elevated liver enzymes: Impression: Improving. Continue to trend. (4) Abdominal pain: Impression: See above, due to acute pancreatitis. Abdominal ultrasound shows no gallbladder pathology. Qualifiers: Abdominal location: unspecified location Qualified Code(s): R10.9 - Unspecified abdominal pain (5) Alcohol use disorder: Impression: Continue [facility] protocol for closer monitoring of withdrawals. SW/CM spoke with patient, and provided resources. (6) Leukocytosis: Impression: Reactive to above, continue to monitor. Qualifiers: Leukocytosis type: unspecified Qualified Code(s): D72.829 - Elevated white blood cell count, unspecified (7) Anxiety: Impression: Continue escitalopram.
[2024-06-17] MEDS: NICOTINE 21 MG PATCH TOP SCH (18:38)
[2024-06-18 06:23] LABS: CALCIUM, IONIZED 1.12 mmol/L (1.15-1.33); VBG PH 7.342 (7.31-7.41)
[2024-06-18 06:27] LABS: BASOPHILS % (AUTO) 0.3 %; EOSINOPHILS # (AUTO) 0.1 10^3/uL (0.0-0.7); EOSINOPHILS % (AUTO) 0.4 %; HCT - HEMATOCRIT 36.1 % (42.0-52.0); HGB - HEMOGLOBIN 11.7 g/dL (14.0-18.0); LYMPHOCYTES # (AUTO) 0.7 10^3/uL (1.5-3.5); LYMPHOCYTES % (AUTO) 5.6 %; MEAN CORPUSCULAR HEMOGLOBIN 30.2 pg (27.0-31.0); MEAN CORPUSCULAR HGB CONC 32.4 g/dL (32.0-36.0); MEAN CORPUSCULAR VOLUME 93.3 fL (80.0-94.0); MEAN PLATELET VOLUME 9.4 fL (7.4-11.4); MONOCYTES # (AUTO) 0.8 10^3/uL (0.0-1.0); MONOCYTES % (AUTO) 6.3 %; NEUTROPHILS # (AUTO) 10.3 10^3/uL (1.5-6.6); NEUTROPHILS % (AUTO) 86.7 %; PLT - PLATELET COUNT 146 10^3/uL (130-450); RED BLOOD COUNT 3.87 10^6/uL (4.70-6.10); WHITE BLOOD COUNT 11.9 x10^3/uL (4.8-10.8)
[2024-06-18 06:41] LABS: ALBUMIN 2.5 g/dL (3.2-5.5); ALBUMIN/GLOBULIN RATIO 1.3 (1.0-2.2); BILIRUBIN,TOTAL 1.1 mg/dL (0.2-1.0); CALCIUM 7.2 mg/dL (8.5-10.3); CREATININE 0.8 mg/dL (0.6-1.3); POTASSIUM 3.8 mmol/L (3.5-4.5); TOTAL PROTEIN 4.5 g/dL (6.4-8.9)
--- NOTE | 2024-06-18 10:11 | PROVIDER PROGRESS NOTE ---
Subjective Prog Note Date Prog Note Date: 06/18/24 Subjective Pt reports feeling: Improved Subjective: Upper abdominal pain is better. Reporting abdominal fullness and swelling in his groin and legs Current Medications Current Medications Current Medications: Current Medications Generic Name Dose Route Start Last Admin Trade Name Freq PRN Reason Stop Dose Admin Enoxaparin Sodium 40 mg 06/16/24 09:00 06/18/24 08:49 Enoxaparin 40 Mg/0.4 Ml Syringe SUBQ Not Given DAILY RIVERA Escitalopram Oxalate 10 mg 06/16/24 09:00 06/18/24 08:48 Escitalopram 10 Mg Tablet PO 10 mg DAILY RIVERA Administration Guaifenesin 600 mg 06/16/24 16:30 06/18/24 08:48 Guaifenesin 600 Mg Tablet PO 600 mg BID RIVERA Administration Hydromorphone HCl 20 mg 06/15/24 10:38 06/15/24 12:30 Hydromorphone System Programmer 20mg/100ml IV 20 mg PRN PRN Administration Abdominal Pain Protocol Hydromorphone HCl 0.5 mg 06/15/24 11:03 06/16/24 19:09 Hydromorphone 0.5 Mg/0.5 Ml Syringe IVP 0.5 mg Q2H PRN Administration Pain 8 to 10 Sodium Chloride 1,000 mls @ 100 mls/hr 06/15/24 11:03 06/18/24 03:58 Normal Saline 0.9% IV 200 mls/hr .Q10H RIVERA Administration Lorazepam 1 mg 06/15/24 12:46 06/16/24 01:50 Lorazepam 2 Mg/Ml Vial IVP 1 mg Q30M PRN Administration CIWA >8 Protocol Metoprolol Tartrate 5 mg 06/15/24 12:54 06/16/24 14:49 Metoprolol 5 Mg/5 Ml Vial IVP 5 mg Q6H PRN Administration Tachycardia Nicotine 1 patch 06/17/24 17:40 06/18/24 08:48 Nicotine 21 Mg Patch TOP 1 patch DAILY RIVERA Administration Ondansetron HCl 4 mg 06/15/24 11:03 06/15/24 20:31 Ondansetron Odt 4 Mg Tablet TL 4 mg Q6HR PRN Administration Nausea / Vomiting Polyethylene Glycol 17 gm 06/15/24 23:00 06/18/24 08:48 Polyethylene Glycol 3350 17 Gm Packet PO 17 gm DAILY RIVERA Administration Sodium Chloride 10 ml 06/15/24 11:03 06/16/24 19:10 Sodium Chloride Flush 0.9% 10 Ml Syringe IVP 10 ml PRN PRN Administration NEEDED PER PROVIDER ORDERS Sodium Chloride 10 ml 06/15/24 17:00 06/18/24 08:49 Sodium Chloride Flush 0.9% 10 Ml Syringe IVP 10 ml 0100,0900,1700 RIVERA Administration Objective Vital Signs/Intake & Output Reviewed Vital Signs: Yes Vital Signs: Vital Signs x48h Temp Pulse Resp BP Pulse Ox 06/18/24 08:31 37.3 C 96 20 146/101 H 92 06/18/24 06:54 16 06/18/24 03:00 14 Intake & Output: Intake & Output 06/15/24 06/16/24 06/17/24 06/18/24 23:59 23:59 23:59 23:59 Intake Total 3569 / 3569 3121.2 / 3121.2 4878.2 / 4878.2 1120 / 1120 Output Total 150 / 150 405 / 405 2024 / 2024 1625 / 1625 Balance 3419 / 3419 2716.2 / 2716.2 2853.2 / 2853.2 -505 / -505 Weight (kg) 52 kg Objective General Appearance: positive No acute distress and Alert Eyes Bilateral: positive Normal inspection, PERRL and EOMI ENT: positive ENT inspection nml, Pharynx nml and No signs of dehydration Neck: positive Nml inspection, Thyroid nml and No JVD Respiratory: positive Chest non-tender, No respiratory distress and Breath sounds nml; negative Wheezes, Rales or Rhonchi Cardiovascular: positive No murmur and Tachycardia; negative Diastolic murmur or Friction rub Abdomen: positive Nml bowel sounds and Tenderness; negative No distention, Guarding or Rebound Back: positive Nml inspection; negative CVA tenderness (R) or CVA tenderness (L) Skin: positive Color nml, No rash, Warm and Dry Extremities: positive Non-tender and Full ROM Neurologic/Psychiatric: positive Oriented x3 and Mood/affect nml Lab Results 06/18/24 05:40 06/18/24 05:40 Other Labs: Lab Results x24hrs 06/18/24 Range/Units 05:40 WBC 11.9 H (4.8-10.8) x10^3/uL RBC 3.87 L (4.70-6.10) 10^6/uL Hgb 11.7 L (14.0-18.0) g/dL Hct 36.1 L (42.0-52.0) % MCV 93.3 (80.0-94.0) fL MCH 30.2 (27.0-31.0) pg MCHC 32.4 (32.0-36.0) g/dL RDW 13.0 (12.0-15.0) % Plt Count 146 (130-450) 10^3/uL MPV 9.4 (7.4-11.4) fL Neut # (Auto) 10.3 H (1.5-6.6) 10^3/uL Lymph # (Auto) 0.7 L (1.5-3.5) 10^3/uL [place] # (Auto) 0.8 (0.0-1.0) 10^3/uL Eos # (Auto) 0.1 (0.0-0.7) 10^3/uL Baso # (Auto) 0.0 (0.0-0.1) 10^3/uL Absolute Nucleated RBC 0.00 x10^3/uL Nucleated RBC % 0.0 /100WBC VBG pH 7.342 (7.31-7.41) Ionized Calcium 1.12 L (1.15-1.33) mmol/L Sodium 134 L (135-145) mmol/L Potassium 3.8 (3.5-4.5) mmol/L Chloride 106 (101-111) mmol/L Carbon Dioxide 23 (21-32) mmol/L Anion Gap 5.0 L (6-13) BUN 8 (6-20) mg/dL Creatinine 0.8 (0.6-1.3) mg/dL Estimated GFR (MDRD) 113 (>89) Glucose 81 (74-104) mg/dL Calcium 7.2 L (8.5-10.3) mg/dL Total Bilirubin 1.1 H (0.2-1.0) mg/dL AST 24 (10-42) IU/L ALT 19 (10-60) IU/L Alkaline Phosphatase 141 H (42-121) IU/L Total Protein 4.5 L (6.4-8.9) g/dL Albumin 2.5 L (3.2-5.5) g/dL Globulin 2.0 L (2.1-4.2) g/dL Albumin/Globulin Ratio 1.3 (1.0-2.2) Assessment/Plan Problem List (1) Acute alcoholic pancreatitis: Impression: Lipase initially elevated at 1910. He was admitted to the hospital and placed on aggressive IV fluid resuscitation and a Dilaudid DOCUMENT IMAGING SPECIALIST pump. CT abdomen/pelvis showed distended gallbladder, acute pancreatitis. 06/17/2024: Increase fluids to 200 mL/hour. Continue Dilaudid DOCUMENT IMAGING SPECIALIST. Advance to clear liquid diet 06/18/2024: Now reporting abdominal fullness, increased swelling in legs and scrotum. I have ordered a testicular ultrasound. Decrease fluids back to 100 mL/hour. DC Dilaudid DOCUMENT IMAGING SPECIALIST pump today. Advance to regular diet Qualifiers: Acute pancreatitis complication: no infection or necrosis Qualified Code(s): K85.20 - Alcohol induced acute pancreatitis without necrosis or infection (2) Tachycardia: Impression: Likely secondary to alcohol withdrawal and pain. Resolved (3) Elevated liver enzymes: Impression: CMP daily (4) Abdominal pain: Impression: Due to acute pancreatitis. Abdominal ultrasound shows no gallbladder pathology. Lower abdominal pain likely fluid overload, de-escalating fluids Qualifiers: Abdominal location: unspecified location Qualified Code(s): R10.9 - Unspecified abdominal pain (5) Alcohol use disorder: Impression: Continue [facility] protocol for closer monitoring of withdrawals. SW/CM spoke with patient, and provided resources. (6) Leukocytosis: Impression: Improving, continue to monitor. Qualifiers: Leukocytosis type: unspecified Qualified Code(s): D72.829 - Elevated white blood cell count, unspecified (7) Anxiety: Impression: Continue escitalopram.
--- NOTE | 2024-06-18 12:47 | Ultrasound Report ---
PROCEDURE: US Testicle INDICATIONS: Scrotal edema TECHNIQUE: Real-time scanning was performed of the scrotum and testicles, with image documentation. Color and p ulse Doppler interrogation was performed of both testicles. COMPARISON: None. FINDINGS: Right: Testicle is normal in size at 4.4 x 2.8 x 2.7 cm, and homogenous in echotexture. Epididymis is normal in overall size and morphology. No hydrocele. No varicoceles. Overlying scrotal skin is n ormal in thickness. Left: Testicle is normal in size at 4.4 x 2.5 x 2.9 cm, and homogeneous in echotexture. Epididymis is normal in overall size and morphology. Small hydrocele. No varicoceles. Overlying scrotal skin i s normal in thickness. Doppler: Color and pulse Doppler demonstrate normal and symmetric arterial flow in both testicles. IMPRESSION: No evidence of infection or torsion. Small left hydrocele. Reviewed by: Ramone Mario MD on 06/18/2024 12:45 PM PST Approved by: Ramone Mario MD on 06/18/2024 12:45 PM PST Station ID: [id number]
[2024-06-18] MEDS: oxyCODONE 5 MG TABLET PO PRN (14:58)
[2024-06-19 06:07] LABS: BASOPHILS # (AUTO) 0.1 10^3/uL (0.0-0.1); BASOPHILS % (AUTO) 0.5 %; EOSINOPHILS # (AUTO) 0.1 10^3/uL (0.0-0.7); EOSINOPHILS % (AUTO) 0.4 %; HCT - HEMATOCRIT 37.5 % (42.0-52.0); HGB - HEMOGLOBIN 12.3 g/dL (14.0-18.0); LYMPHOCYTES # (AUTO) 0.9 10^3/uL (1.5-3.5); LYMPHOCYTES % (AUTO) 6.2 %; MEAN CORPUSCULAR HEMOGLOBIN 30.4 pg (27.0-31.0); MEAN CORPUSCULAR HGB CONC 32.8 g/dL (32.0-36.0); MEAN CORPUSCULAR VOLUME 92.8 fL (80.0-94.0); MEAN PLATELET VOLUME 9.3 fL (7.4-11.4); MONOCYTES # (AUTO) 1.4 10^3/uL (0.0-1.0); MONOCYTES % (AUTO) 9.9 %; NEUTROPHILS # (AUTO) 11.7 10^3/uL (1.5-6.6); NEUTROPHILS % (AUTO) 80.7 %; PLT - PLATELET COUNT 190 10^3/uL (130-450); RED BLOOD COUNT 4.04 10^6/uL (4.70-6.10); RED CELL DISTRIBUTION WIDTH 12.9 % (12.0-15.0); WHITE BLOOD COUNT 14.5 x10^3/uL (4.8-10.8)
[2024-06-19 06:24] LABS: ALBUMIN 3.1 g/dL (3.2-5.5); ALBUMIN/GLOBULIN RATIO 1.3 (1.0-2.2); CREATININE 0.7 mg/dL (0.6-1.3); POTASSIUM 3.7 mmol/L (3.5-4.5); TOTAL PROTEIN 5.5 g/dL (6.4-8.9)
[2024-06-19 06:45] LABS: CALCIUM, IONIZED 1.16 mmol/L (1.15-1.33); VBG PH 7.331 (7.31-7.41)
[2024-06-19 08:13] VITALS: BP 167/108; TEMP 98.8; O2SAT 92
--- NOTE | 2024-06-19 10:25 | Discharge Summary ---
Discharge Summary Admit Date: 06/15/24 Discharge Date: 06/19/24 Discharging Provider: Jacky Joe NP Primary Care Provider: No PCP Code Status: Attempt Resuscitation DIAGNOSES Admission Diagnoses: Acute alcoholic pancreatitis Tachycardia Elevated liver enzymes Abdominal pain Alcohol use disorder, moderate, dependence Leukocytosis Anxiety Discharge Diagnoses with Status of Each Condition: Acute alcoholic pancreatitisresolved Tachycardiaresolved Elevated liver enzymesresolved Abdominal painresolved Alcohol use disorder, moderate, dependence- chronic Leukocytosis-Resolved Anxietychronic HPI History of Present Illness: This is a 29-year-old male with a past medical history of pancreatitis, alcohol use disorder and anxiety who presents with ER for abdominal pain x 3 days. Patient states that abdominal pain is over the left upper quadrant, very painful upon palpitation. This has started several days ago. Patient states last drink was on Saturday. Patient states that he never went through DTs or seizures during Several episodes of alcohol withdrawal. Patient had similar episodes back in April.At this time CT abdomen indicated inflammation of pancreatic head. Ultrasound at that time showed hepatic steatosis and nonobstructive calculi of the right kidney. Today: Chest ray in the ED indicated no cardiopulmonary issues CT of the abdomen indicates acute pancreatitis with pancreatic edema. Extensive Pancreatic fluid likely inflammation, moderate abdominal ascites. No pancreatic evidence of regarding necrosis. Distended gallbladder with mild wall prominence no gallstones noted. Laboratory values are significant for elevated leukocytosis of 23,000, Elevated creatinineOf 1.4, elevated bilirubin of 2.1 elevated AST ALT, Elevated alkaline phosphatase and a lipase of 1910. HOSPITAL COURSE Hospital Course: He was admitted to the hospital and placed on aggressive IV fluid resuscitation and bowel rest. On 06/18/2024, he started experiencing abdominal bloating as well as leg swelling and scrotal swelling. Testicle ultrasound was performed and found to be negative for acute abnormality. IV fluid rate was reduced, and his lower abdominal symptoms resolved. Today, he has no more upper abdominal pain and tolerated regular diet for breakfast. He has been instructed to follow-up with a primary care provider within 2 weeks. He has indicated that he is open to alcohol cessation, and social work is given him resources for this. He had some elevated blood pressures while in the hospital, suggest primary care follow-up for this ALLERGIES Allergies Allergy/AdvReac Type Severity Reaction Status Date / Time prochlorperazine (From AdvReac Intermediate Anxiety Verified 06/15/24 08:10 Compazine) MEDICATIONS Ambulatory Orders Medication Instructions Recorded Confirmed escitalopram oxalate 10 mg tablet 10 mg PO DAILY 06/15/24 06/15/24 PHYSICAL EXAM AT DISCHARGE General Appearance: positive No acute distress and Alert Eyes Bilateral: positive Normal inspection and PERRL ENT: positive No signs of dehydration Neck: positive No JVD Cardiovascular: positive Regular rate & rhythm and No murmur Peripheral Pulses: positive 2+ Abdomen: positive Non-tender Skin: positive Color nml Extremities: positive Non-tender Neurologic/Psychiatric: positive Oriented x3 LABS 06/19/24 05:34 06/19/24 05:34 FOLLOW UP Follow Up: He needs to establish himself with a PCP and have an appointment within 2 weeks TIME SPENT Time Spent in Discharge (Minutes): 25 Discharge Plan Discharge Patient Disposition: Home, Self Care Condition: Serious Medically Cleared Date:: 06/19/24 Prescriptions: Continued escitalopram oxalate 10 mg tablet 10 mg PO DAILY Activity Restrictions: No Restrictions Diet: Regular Health Concerns: You have a history of alcohol use disorder, anxiety, pancreatitis. You presented with abdominal pain and were found to have acute alcoholic pancreatitis. You were admitted to the hospital for aggressive IV fluid resuscitation and bowel rest. Today, you are stable enough for discharge. You were able to tolerate solid food without any increasing upper abdominal pain. I am not making any changes to your home medication regimen, however I would strongly suggest that you stop drinking. Social work has given you resources to help with this. I expect you will be making a lot of urine over the next few days, and the swelling in your legs and stomach will go down. You need to establish yourself with a primary care provider, and potentially start meds for hypertension Care Plan Goals: Stop drinking Follow-up with PCP within 2 weeks Assessment: Able to independently perform all activities of daily living. No changes to medication regimen. Follow-up with PCP within 2 weeks Plan of Treatment: Stop drinking Follow-up with PCP in 2 weeks Print Language: Macanese Patient Instructions: Alcoholism Stand Alone Forms: PCP List
== END 2024-06-19 11:15 | disposition home or self-care (01) | DRG 439 ==
LOC: ED 07:43 → MS2 10:54
PROVIDERS: ADMIT Internal Medicine; ATTEND Internal Medicine
DX: D72.829 Elevated white blood cell count, unspecified; R74.01 Elevation of levels of liver transaminase levels; R00.0 Tachycardia, unspecified; R74.8 Abnormal levels of other serum enzymes; F10.239 Alcohol dependence with withdrawal, unspecified; F41.9 Anxiety disorder, unspecified; F17.290 Nicotine dependence, other tobacco product, uncomplicated; K85.20 Alcohol induced acute pancreatitis without necrosis or infection